=== PATIENT | female | born 1990 | race Hispanic/Latino ===

== ENCOUNTER 2018-01-20 19:22 | Emergency (ER) | payer BC, OTHER ==
[2018-01-20 19:23] VITALS: BMI 41.6
[2018-01-20 20:03] VITALS: RESP 18; TEMP 98.3; O2SAT 100
[2018-01-20] MEDS: Sodium Chloride 0.9% 1,000 ML IV SCH (21:16)
[2018-01-20 21:23] LABS: VENOUS BLOOD GAS BASE EXCESS -7.1 mmol/L (0.0-2.0); VENOUS BLOOD GAS PO2 35 mm/Hg (30-55); VENOUS BLOOD PH 7.28 (7.32-7.43)
[2018-01-20 21:26] LABS: BASO # 0.03 K/mm3 (0.0-2.0); BASO % 0.4 % (0.0-3.0); EOS # 0.1 (0.0-0.7); EOS % 1.1 % (1.5-5.0); GRAN # 4.18 (1.4-6.5); GRAN % 49.3 % (50.0-68.0); HEMOGLOBIN 14.6 g/dL (12.0-16.0); LYMPH # 3.6 (1.2-3.4); LYMPH % 42.6 % (22.0-35.0); MEAN CELL VOLUME 82.2 fl (80.0-105.0); MEAN CORPUSCULAR HEMOGLOBIN 30.5 pg (25.0-35.0); MEAN CORPUSCULAR HGB CONC 37.2 g/dl (31.0-37.0); MONO # 0.6 (0.1-0.6); MONO % 6.6 % (1.0-6.0); RBC 4.78 10^6/uL (3.5-6.1); RED CELL DISTRIBUTION WIDTH 13.4 % (11.5-14.5); WHITE BLOOD COUNT 8.5 10^3/ul (4.5-11.0)
[2018-01-20 21:26] LABS: URINE APPEARANCE CLEAR (CLEAR); URINE BILIRUBIN NEGATIVE (NEGATIVE); URINE BLOOD NEGATIVE (NEGATIVE); URINE COLOR LIGHT YELLOW (YELLOW); URINE GLUCOSE (UA) NEGATIVE (NEGATIVE); URINE LEUKOCYTE ESTERASE NEGATIVE Leu/uL (NEGATIVE); URINE PROTEIN TRACE mg/dL (<30 mg/dL); URINE UROBILINOGEN 0.2 E.U./dL (<1 E.U./dL)
--- NOTE | 2018-01-20 21:27 | ED PDOC ---
Arrival/HPI - General Chief Complaint: Back Pain Time Seen by Provider: 01/20/18 19:46 Historian: Patient - History of Present Illness Narrative History of Present Illness (Text): 01/20/18 21:23 Patient is a 27 year old female presenting to the emergency department complaining of right sided back pain since 3 days ago. Patient notes the pain radiates from her back to right lower quadrant of the the abdomen. Patient reports the pain is a throbbing, stabbing sensation and has noticed an increase in urinary frequency. No hx of STDS, no vaginal d/c, LMP was 2 weeks prior, normal. No trauma. No enuresis, encoparesis or saddle anesthesia. Patient denies any fever, chills, chest pain, shortness of breath, abdominal pain, nausea, vomiting, diarrhea, dysuria, urgency, vaginal discharge, rashes, urinary symptoms, back pain, neck pain, headache, dizziness, or any other complaints. PMD: Dr. Krish Negrete MD 01/21/18 00:36 01/21/18 00:37 Time/Duration: Other (3 days ago) Symptom Onset: Gradual Symptom Course: Unchanged Activities at Onset: Light Context: Home Past Medical History - Provider Review Nursing Documentation Reviewed: Yes - Tetanus Immunization Tetanus Immunization: Unknown - Past Medical History Past Medical History: No Previous - Cardiac Hx Cardiac Disorders: No - Pulmonary Hx Respiratory Disorders: No - Neurological Hx Neurological Disorder: Yes Hx Seizures: Yes - HEENT Hx HEENT Disorder: No - Renal Hx Renal Disorder: No - Endocrine/Metabolic Hx Endocrine Disorders: No - Hematological/Oncological Hx Blood Disorders: No - Integumentary Hx Dermatological Disorder: No - Musculoskeletal/Rheumatological Hx Musculoskeletal Disorders: No - Gastrointestinal Hx Gastrointestinal Disorders: No - Genitourinary/Gynecological Hx Genitourinary Disorders: Yes Hx Urinary Tract Infection: Yes - Psychiatric Hx Psychophysiologic Disorder: Yes Hx Depression: Yes Hx Emotional Abuse: No Hx Physical Abuse: No Hx Substance Use: No - Past Surgical History Past Surgical History: No Previous - Suicidal Assessment Feels Threatened In Home Enviroment: No Family/Social History - Physician Review Nursing Documentation Reviewed: Yes Family/Social History: Unknown Family HX Smoking Status: Former Smoker Hx Alcohol Use: No Hx Substance Use: No Hx Substance Use Treatment: No Allergies/Home Meds Allergies/Adverse Reactions: Allergies amoxicillin Allergy (Verified 06/26/16 10:35) ANAPHYLAXIS mold Allergy (Verified 06/26/16 10:35) WHEEZING nut - unspecified Allergy (Verified 06/26/16 10:35) ANAPHYLAXIS Penicillins Allergy (Verified 06/26/16 10:35) ANAPHYLAXIS Home Medications: Home Meds Medication Instructions Recorded Confirmed Esomeprazole Magnesium [Nexium] 40 mg PO DAILY 04/25/15 06/26/16 Review of Systems - Physician Review All systems were reviewed & negative as marked: Yes - Review of Systems Constitutional: absent: Fevers, Night Sweats Respiratory: absent: SOB Cardiovascular: absent: Chest Pain Gastrointestinal: Abdominal Pain (+radiating from back pain). absent: Diarrhea , Nausea Genitourinary Female: Frequency (+incresae urinary frequency). absent: Hematuria, Urine Output Changes Musculoskeletal: Back Pain (+radiates to abdomen). absent: Neck Pain Skin: absent: Rash Neurological: absent: Headache, Dizziness Physical Exam Vital Signs Reviewed: Yes Vital Signs Temp Pulse Resp BP Pulse Ox 01/20/18 19:54 98.3 F 88 18 128/96 H 100 Temperature: Afebrile Blood Pressure: Hypertensive Pulse: Regular Respiratory Rate: Normal Appearance: Positive for: Well-Appearing, Non-Toxic, Comfortable Pain Distress: None Mental Status: Positive for: Alert and Oriented X 3 - Systems Exam Head: Present: Atraumatic, Normocephalic Pupils: Present: PERRL Extroacular Muscles: Present: EOMI Conjunctiva: Present: Normal Mouth: Present: Moist Mucous Membranes Neck: Present: Normal Range of Motion Respiratory/Chest: Present: Clear to Auscultation, Good Air Exchange. No: Respiratory Distress, Accessory Muscle Use Cardiovascular: Present: Regular Rate and Rhythm, Normal S1, S2. No: Murmurs Abdomen: Present: Other (+right lower quadrant pain). No: Tenderness, Distention, Normal Bowel Sounds, Peritoneal Signs, Rebound, Guarding, McBurney' s Point Tender, Rovsing's Sign Present, Hernias, Feeding Tubes, Ostomy Tubes, Mass/Organomegaly, Scars Back: Present: Normal Inspection Upper Extremity: Present: Normal Inspection. No: Cyanosis, Edema Lower Extremity: Present: Normal Inspection. No: Edema Neurological: Present: GCS=15, CN II-XII Intact, Speech Normal Skin: Present: Warm, Dry, Normal Color. No: Rashes Psychiatric: Present: Alert, Oriented x 3, Normal Insight, Normal Concentration Medical Decision Making ED Course and Treatment: 01/20/18 21:30 Impression: 27 year old female presenting to the emergency department complaining of right sided back pain. No hx of HTN, or collagen disorders, unlikely AAA. No vaginal d/c or vaginal pain or STD hx, u/l [id number]. No ruq pain, or epigastric pain, u/l gallbladder pain. Given RLQ pain and radiation to back likely stone vs pyelo vs appdx vs cyst. Will seek imaging and labs. Plan: -- Venous blood gas -- CT of abdomen & pelvis -- CMP -- Lipase -- IV fluids -- Reassess and disposition Prior Visits: Notes and results from previous visits were reviewed. Progress Notes: 01/20/18 23:26 Upon reassessment, patient endorsed no pain, no nausea or vomiting. Patient is advised to follow up with obgyn. 01/20/18 23:28 EXAM: CT Abdomen and Pelvis With Intravenous Contrast CLINICAL HISTORY: 27 years old, female; Pain; Abdominal pain; Localized; Right; Additional info: Rlq pain stone vs appendicits vs pyelo TECHNIQUE: Axial computed tomography images of the abdomen and pelvis with intravenous contrast. All CT scans at this facility use at least one of these dose optimization techniques: automated exposure control; mA and/or kV adjustment per patient size (includes targeted exams where dose is matched to clinical indication); or iterative reconstruction. Coronal and sagittal reformatted images were created and reviewed. CONTRAST: 100 ml of OMNI 350 administered intravenously. COMPARISON: No relevant prior studies available. FINDINGS: Lower thorax: There is subpleural atelectasis of the dependent portions of the lungs. ABDOMEN: Liver: Normal. No mass. Gallbladder and bile ducts: Normal. No calcified stones. No ductal dilation. Pancreas: Normal. No ductal dilation. Spleen: Normal. No splenomegaly. Adrenals: Normal. No mass. Kidneys and ureters: Normal. No hydronephrosis. Stomach and bowel: There is no wall thickening or pericolonic stranding to suggest colitis. Appendix: No evidence of appendicitis. Normal appendix. PELVIS: Bladder: Unremarkable as visualized. Reproductive: 1.4 cm right ovarian follicle. ABDOMEN and PELVIS: Intraperitoneal space: Normal. No free air. No significant fluid collection. Bones/joints: No acute fracture. No dislocation. Soft tissues: There is a fat-containing umbilical hernia. Vasculature: Normal. No abdominal aortic aneurysm. Lymph nodes: Normal. No enlarged lymph nodes. IMPRESSION: No evidence of an acute intra-abdominal or pelvic abnormality. Normal appendix. No pyelonephritis or obstructive uropathy. Dictated and Authenticated by: Bri Galindo MD 01/20/2018 11:09 PM Eastern Time 1109 labs and imaging unremarkable, clear for d/c home w/ f/u and return indications. pt notes that she would like pain meds for home script written for motrin. - Lab Interpretations Lab Results: 01/20/18 21:10 01/20/18 21:40 Lab Results 01/20/18 21:40: Sodium 142, Chloride 108 H, Potassium 3.5 L, Carbon Dioxide 22, Anion Gap 15, BUN 11, Creatinine 0.9, Est GFR ( Amer) > 60, Est GFR (Non- Af Amer) > 60, Random Glucose 98, Calcium 8.9, Total Bilirubin 0.3, AST 22, ALT 25, Alkaline Phosphatase 62, Total Protein 8.1, Albumin 4.2, Globulin 3.9, Albumin/Globulin Ratio 1.1, Lipase 143 01/20/18 21:10: pO2 35, VBG pH 7.28 L, VBG pCO2 41.0, VBG HCO3 19.3 L, VBG Total CO2 20.6 L, VBG O2 Sat (Calc) 64.9, VBG Base Excess -7.1 L, VBG Potassium 5.0, Sodium 136.0, Chloride 107.0, Glucose 86, Lactate 2.6 H, FiO2 21.0, Venous Blood Potassium 5.0 01/20/18 21:10: WBC 8.5, RBC 4.78, Hgb 14.6, Hct 39.3, MCV 82.2, MCH 30.5, MCHC 37.2 H, RDW 13.4, Plt Count 255, MPV 11.0, Gran % 49.3 L, Lymph % (Auto) 42.6 H , Mower % (Auto) 6.6 H, Eos % (Auto) 1.1 L, Baso % (Auto) 0.4, Gran # 4.18, Lymph # (Auto) 3.6 H, Mower # (Auto) 0.6, Eos # (Auto) 0.1, Baso # (Auto) 0.03 01/20/18 19:54: Urine Color Light yellow, Urine Appearance Clear, Urine pH 6.0, Ur Specific [place] 1.025, Urine Protein Trace H, Urine Glucose (UA) Negative, Urine Ketones Negative, Urine Blood Negative, Urine Nitrate Negative, Urine Bilirubin Negative, Urine Urobilinogen 0.2, Ur Leukocyte Esterase Negative, Urine RBC 0 - 2, Urine WBC 0 - 2, Ur Epithelial Cells 3 - 4, Urine Bacteria Mod - RAD Interpretation Radiology Orders: 01/20/18 20:46 ABD & PELVIS IV CONTRAST ONLY [CT] Stat - Medication Orders Current Medication Orders: Sodium Chloride (Sodium Chloride 0.9%) 1,000 mls @ 100 mls/hr IV .Q10H LEANNA Last Admin: 01/20/18 21:16 Dose: 100 mls/hr eMAR Start Stop Document 01/20/18 21:16 AD (Rec: 01/20/18 21:16 AD [id number]) Intravenous Solution Start Date 01/20/18 Start Time 21:16 - Scribe Statement The provider has reviewed the documentation as recorded by the Scribe Peggy Ashby All medical record entries made by the Scribe were at my direction and personally dictated by me. I have reviewed the chart and agree that the record accurately reflects my personal performance of the history, physical exam, medical decision making, and the department course for this patient. I have also personally directed, reviewed, and agree with the discharge instructions and disposition. Disposition/Present on Arrival - Present on Arrival Any Indicators Present on Arrival: No History of DVT/PE: No History of Uncontrolled Diabetes: No Urinary Catheter: No History of Decub. Ulcer: No History Surgical Site Infection Following: None - Disposition Have Diagnosis and Disposition been Completed?: Yes Diagnosis: Ovarian cyst Disposition: HOME/ ROUTINE Disposition Time: 11:08 Patient Problems: Current Active Problems Problem Status Onset Ovarian cyst Acute Condition: GOOD Discharge Instructions (ExitCare): Ovarian Cysts Additional Instructions: HARVEY CORTES, thank you for letting us take care of you today. Your provider was Ulices Lou and you were treated for BACK AND SIDE PAIN. The emergency medical care you received today was directed at your acute symptoms. If you were prescribed any medication, please fill it and take as directed. It may take several days for your symptoms to resolve. Return to the Emergency Department if your symptoms worsen, do not improve, or if you have any other problems. Please contact your doctor or call one of the physicians/clinics you have been referred to that are listed on the Patient Visit Information form that is included in your discharge packet. Bring any paperwork you were given at discharge with you along with any medications you are taking to your follow up visit. Our treatment cannot replace ongoing medical care by a primary care provider outside of the emergency department. Thank you for allowing the [facility] team to be part of your care today. If you had an X-Ray or CT scan: A Radiologist will review the ED reading if any change in treatment is needed we will contact you. If you had a blood, urine, or wound culture: It will take several days for the results, if any change in treatment is needed we will contact you. If you had an STI test: It will take 48 hours for the results. Please call after 1 week if you have not heard back. Prescriptions: Ibuprofen [Motrin] 600 mg PO Q8H 7 Days #21 tab Referrals: Elayne Pisano MD [Staff Provider] - Follow up with primary Krish Negrete MD [Primary Care Provider] - Follow up with primary Forms: [employer] (Urdu)
[2018-01-20 21:29] LABS: URINE RBC 0 - 2 /hpf (0-2)
[2018-01-20 21:30] LABS: URINE BACTERIA MOD (NEG); URINE WBC 0 - 2 /hpf (0-6)
[2018-01-20] MEDS ORDERED: Iohexol 350 MG/100 ML VIAL ONE (21:45)
[2018-01-20 22:04] LABS: ALB/GLOB RATIO 1.1 (1.1-1.8); ALBUMIN 4.2 g/dL (3.0-4.8); ALT/SGPT 25 U/L (7-56); AST/SGOT 22 U/L (14-36); BLOOD UREA NITROGEN 11 mg/dL (7-21); CALCIUM 8.9 mg/dL (8.4-10.5); GFR NON-AFRICAN AMERICAN > 60; LIPASE 143 U/L (23-300)
[2018-01-21 00:50] VITALS: BP 122/82; PULSE 85
--- NOTE | 2018-01-21 08:41 | CT ---
Date of service: 01/20/2018 PROCEDURE: CT Abdomen and Pelvis with contrast HISTORY: rlq pain stone vs appendicits vs pyelo COMPARISON: None. TECHNIQUE: Contrast dose: 100 mL Omnipaque 350 Radiation dose: Total exam DLP = 1224.86 mGy-cm. This CT exam was performed using one or more of the following dose reduction techniques: Automated exposure control, adjustment of the mA and/or kV according to patient size, and/or use of iterative reconstruction technique. FINDINGS: LOWER THORAX: No visible consolidation, pleural effusion, or pneumothorax. LIVER: Unremarkable. GALLBLADDER AND BILE DUCTS: Unremarkable. PANCREAS: Unremarkable. SPLEEN: Unremarkable. ADRENALS: Unremarkable. KIDNEYS AND URETERS: The kidneys enhance symmetrically. No hydronephrosis or obstructing calculus identified. VASCULATURE: No aortic aneurysm. BOWEL: Stomach is nondistended. Lack of oral contrast limits evaluation for bowel pathology. Bowel loops appear within normal limits of caliber without evidence of obstruction. APPENDIX: The appendix appears within normal limits of caliber. No secondary signs of acute appendicitis. PERITONEUM: No significant free fluid. No definite free air. LYMPH NODES: No bulky adenopathy identified. BLADDER: Unremarkable. REPRODUCTIVE: Uterus is present. 1.4 cm right pelvic cystic lesion, likely related to the right ovary (follicle/cyst). BONES: No acute osseous abnormality is detected. OTHER FINDINGS: None. IMPRESSION: Unremarkable contrast enhanced CT of the abdomen and pelvis. Preliminary impression was provided by virtual radiologic.
== END 2018-01-20 23:37 | disposition home or self-care (01) ==
LOC: ED 19:22
DX: N83.201 Unspecified ovarian cyst, right side (principal); Z87.891 Personal history of nicotine dependence
CPT/HCPCS: 74177; 80053; 81001; 82803; 83690; 85025; 99283; J7030; Q9967